=== PATIENT | male | born 1945 | race Caucasian/White ===

== ENCOUNTER → 2016-12-25 | Outpatient (CLI) | payer OTHER ==
[~2016-12-25] MED LIST: ASPI325T45 PO; ATOR-24 PO; DILT-113 PO; METF500T PO; METO100T14 PO; RAMI10CA PO
[2016-12-25 10:53] LABS: ALT/SGPT 71 U/L (12-78); BLOOD UREA NITROGEN 13 mg/dl (7-18); BUN/CREATININE RATIO 15.8 (10-20); CARBON DIOXIDE 29 mmol/L (21-32); CHLORIDE 104 mmol/L (98-107); CHOLESTEROL 111 mg/dl (0-200); CREATININE 0.81 mg/dl (0.60-1.40); GLUCOSE 108 mg/dl (70-99); POTASSIUM 4.2 mmol/L (3.5-5.1); SODIUM 140 mmol/L (136-145); TRIGLYCERIDES 106 mg/dl (0-150); VERY LOW DENSITY LIPOPROT CALC 21 mg/dl
[2016-12-25 10:56] LABS: AST/SGOT 28 U/L (15-37); CHOLESTEROL/HDL RATIO 3.2; HDL CHOLESTEROL 35 mg/dl; LDL CHOLESTEROL CALCULATED 55 mg/dl
[2016-12-25 11:01] LABS: ESTIMATED AVERAGE GLUCOSE 148 mg/dl; HA1C FLAG Normal (Normal)
== END | disposition home or self-care (01) ==
LOC: C.LAB1850 09:09
PROVIDERS: ATTEND Family Medicine
DX: E78.00 Pure hypercholesterolemia, unspecified (principal); E11.9 Type 2 diabetes mellitus without complications

== ENCOUNTER → 2017-07-09 | Outpatient (CLI) | payer OTHER ==
[2017-07-09 10:15] LABS: CHOLESTEROL/HDL RATIO 2.7
== END | disposition home or self-care (01) ==
LOC: C.LAB1850 08:53
PROVIDERS: ATTEND Internal Medicine Cardiovascular Disease
DX: E78.00 Pure hypercholesterolemia, unspecified (principal)

== ENCOUNTER → 2018-01-03 | Outpatient (CLI) | payer OTHER | END | disposition home or self-care (01) | LOC: C.LAB1850 09:12 | PROVIDERS: ATTEND Internal Medicine Cardiovascular Disease | DX: I10 Essential (primary) hypertension (principal); E78.00 Pure hypercholesterolemia, unspecified ==

== ENCOUNTER 2022-09-30 21:11 | Inpatient (IN) ==
[2022-09-30] MEDS ORDERED: ACETAMINOPHEN 325 MG TAB PO STA (21:51)
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
[2022-09-30 22:32] LABS: iSTAT Creatinine 0.7 mg/dl (0.6-1.3); iSTAT Hemoglobin 16.3 g/dl (14.0-18.0); iSTAT Ionized Calcium 1.23 mmol/l (1.12-1.32); iSTAT Potassium 4.1 mmol/L (3.3-5.0)
[2022-09-30] MEDS ORDERED: OPTIRAY 350 100ml IV ONE (23:37)
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
--- NOTE | 2022-10-01 02:58 | Billing Data ---
Date of Service October 01, 2022 Coding Level of Care Code 34654 Initial Inpt Care Lvl 2
[2022-10-01] MEDS ORDERED: GLUCAGON FOR INJ 1 MG VIAL SQ PRN (03:12)
[2022-10-01] MEDS ORDERED: GLUCOSE 40% GEL 15 GM TUBE PO PRN (03:12)
[2022-10-01] MEDS ORDERED: GLUCOSE 10 TAB/TUBE PO PRN (03:12)
[2022-10-01] MEDS ORDERED: CARBOHYDRATES FOR HYPOGLYCEMIA PO PRN (03:12)
[2022-10-01] MEDS ORDERED: ACETAMINOPHEN 325 MG TAB PO PRN (03:12)
[2022-10-01] MEDS ORDERED: DEXTROSE 50% 50 ML SYRINGE IV PRN (03:12)
[2022-10-01] MEDS ORDERED: TELMISARTAN 40 MG TAB PO STA (03:20)
[2022-10-01] MEDS: oxyCODONE/ACETAMINOPHEN 5mg/325mg TAB PO PRN ×4 (03:38→18:38)
[2022-10-01 03:51] LABS: Basophils # (auto) 0.04 K/uL (0-0.2); Basophils % (auto) 0.3 %; Eosinophils # (auto) 0.02 K/uL (0-0.50); Eosinophils % (auto) 0.2 %; Hematocrit (blood only) 44.4 % (40.1-51.0); Hemoglobin 14.5 g/dl (14.0-18.0); Immature Granulocytes # (auto) 0.05 K/uL (0.00-0.02); Immature Granulocytes % (auto) 0.4 %; Lymphocytes # (auto) 1.89 K/uL (1.2-3.4); Lymphocytes % (auto) 14.6 %; Mean Corpuscular Hemoglobin 28.3 pg (25.0-34.0); Mean Corpuscular Hgb Conc 32.7 g/dL (32.0-36.0); Mean Corpuscular Volume 86.7 fL (80.0-100.0); Mean Platelet Volume 10.4 fL (9.4-12.4); Monocytes # (auto) 0.89 K/uL (0.24-0.82); Monocytes % (auto) 6.9 %; Neutrophils # (auto) 10.02 K/uL (1.4-6.5); Neutrophils % (auto) 77.6 %; Platelet Count 281 K/uL (130-400); RDW Coefficient of Variation 13.6 % (11.5-14.5); RDW Standard Deviation 43.6 fL (36.4-46.3); Red Blood Count 5.12 M/uL (4.63-6.08); White Blood Count 12.91 K/ul (4.8-10.8)
[2022-10-01 04:04] LABS: Prothrombin Time 10.9 Seconds (9.0-12.0)
[2022-10-01 04:13] LABS: Albumin Globulin Ratio 1.6 (0.9-2); Bilirubin,Total 0.9 mg/dl (0.2-1.0); Calcium 9.8 mg/dl (8.5-10.1); Creatinine Clr Calc Pharmacy 72.9 ml/min; Est GFR (Non-African American) 85.4 ml/min; Globulin 3.2 gm/dl (2.5-4.0); Magnesium 1.7 mg/dl (1.7-2.4); Potassium 4.6 mmol/L (3.5-5.1); Total Protein 8.2 gm/dl (6.0-8.3)
--- NOTE | 2022-10-01 06:45 | XRay Report ---
XR shoulder RT min 2V routine HISTORY: 76 years-old Male R shoulder pain . Chronic right shoulder pain COMPARISON: Chest CT of same day TECHNIQUE: 3 views of the right shoulder FINDINGS: Severe AC joint with moderate glenohumeral osteoarthritis. No acute fracture or dislocation. Cardiome jacques with prior median sternotomy and CABG. Pulmonary emphysema. IMPRESSION: Osteoarthritis without acute fracture or dislocation identified. ACT 112: Negative or not required by law. The above report was generated using voice recognition software. It may contain grammatical, syntax o r spelling errors. Electronically signed by: Justyn Richardson M.D. 10/01/2022 6:44 AM
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
--- NOTE | 2022-10-01 08:01 | Communication Note ---
Date of Service: October 01, 2022 Please see history and physical from today for full A and P except as otherwise stated here: For T12/L2 disc fusion by Dr. Fitch 10/02/22. NPO at midnight. Percocet 1-2 tablets ordered as needed prn moderate-severe pain. Mildly elevated WBC count however no localizable source of infection.
[2022-10-01] MEDS: METOPROLOL TARTRATE 100 MG TAB PO SCH ×3 (08:26→18:29)
[2022-10-01] MEDS ORDERED: Nursing to Pharmacy Communication SCH (08:30)
[2022-10-01] MEDS: dilTIAZem HCL 180 MG CAPCR PO SCH (08:38)
[2022-10-01 08:39] LABS: Estimated Average Glucose 128 mg/dl; Hemoglobin A1C 6.1 % (4.5-5.6)
[2022-10-01] MEDS: INSULIN ASPART PER UNIT SC SCH ×4 (08:43→20:52)
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
[2022-10-01] MEDS ORDERED: TELMISARTAN 40 MG TAB PO SCH (09:00)
[2022-10-01] MEDS ORDERED: TAMSULOSIN HCL 0.4 MG CAP PO SCH (09:00)
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
[2022-10-01] MEDS: CHOLECALCIFEROL 5,000 UNITS 125 MCG TAB PO SCH (10:11)
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
[2022-10-01] MEDS ORDERED: oxyCODONE/ACETAMINOPHEN 5mg/325mg TAB PO PRN (14:25)
[2022-10-01] MEDS ORDERED: HYDROmorphone INJ 0.5 MG/0.5 ML SYR IV PRN (14:31)
[2022-10-01] MEDS: TELMISARTAN 40 MG TAB PO SCH (17:29)
[2022-10-01] MEDS: TAMSULOSIN HCL 0.4 MG CAP PO SCH (20:10)
[2022-10-01] MEDS: ATORVASTATIN 40 MG TAB PO SCH (20:10)
[2022-10-02] MEDS: oxyCODONE/ACETAMINOPHEN 5mg/325mg TAB PO PRN ×2 (02:20→08:51)
[2022-10-02 06:29] LABS: Hematocrit (blood only) 42.9 % (40.1-51.0); Hemoglobin 14.1 g/dl (14.0-18.0); Mean Corpuscular Hemoglobin 28.6 pg (25.0-34.0); Mean Corpuscular Hgb Conc 32.9 g/dL (32.0-36.0); Mean Platelet Volume 10.2 fL (9.4-12.4); Platelet Count 219 K/uL (130-400); RDW Coefficient of Variation 13.7 % (11.5-14.5); RDW Standard Deviation 43.6 fL (36.4-46.3); Red Blood Count 4.93 M/uL (4.63-6.08); White Blood Count 11.36 K/ul (4.8-10.8)
[2022-10-02 06:56] LABS: BUN Creatinine Ratio 15.2 (10-20); Calcium 9.3 mg/dl (8.5-10.1); Creatinine Clr Calc Pharmacy 68.2 ml/min; Est GFR (African American) 94.6 ml/min; Est GFR (Non-African American) 81.6 ml/min
[2022-10-02] MEDS: INSULIN ASPART PER UNIT SC SCH ×4 (08:45→20:43)
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
[2022-10-02] MEDS: dilTIAZem HCL 180 MG CAPCR PO SCH (08:51)
[2022-10-02] MEDS: CHOLECALCIFEROL 5,000 UNITS 125 MCG TAB PO SCH (08:51)
[2022-10-02] MEDS: METOPROLOL TARTRATE 100 MG TAB PO SCH ×2 (08:52→19:58)
[2022-10-02] MEDS ORDERED: HYDROmorphone INJ 2 MG/ML SYR/VIAL ONE (10:49)
[2022-10-02] MEDS ORDERED: MIDAZOLAM HCL 1 MG/ML 2ML VIAL ONE (10:49)
[2022-10-02] MEDS ORDERED: ATROPINE SULFATE 0.1 MG/ML 10ML SYR IV PRN (10:50)
[2022-10-02] MEDS ORDERED: ePHEDrine sulfate 50 MG/ML AMP IV PRN (10:50)
[2022-10-02] MEDS ORDERED: ONDANSETRON INJ 2 MG/ML 2 ML VIAL IV PRN ×2 (10:50→14:34)
[2022-10-02] MEDS ORDERED: fentaNYL citrate 100 MCG/2 ML VIAL IV PRN (10:50)
--- NOTE | 2022-10-02 10:50 | Anesthesiology Consultation ---
Date of Service October 02, 2022 Assessment & Plan (1) Encounter for pre-operative examination: Chart Review Chart Review: Acceptable Risk for Surgery and Patient NOT seen in Pre Admission Testing Consults Requested none History Surgery Operation Date: 10/02/22 12:25 Proposed Procedures p T12-L2 Lumbar Fusion - Adis Fitch DO Height/Weight Height: 5 ft 8 in Weight: 76.9 kg Allergies Allergy/AdvReac Type Severity Reaction Status Date / Time No Known Allergies Allergy Verified 09/30/22 21:55 Medications Home Medications Medication Instructions Recorded Confirmed Last Taken atorvastatin 40 mg tablet 40 mg PO HS #90 tabs 05/17/19 09/30/22 09/29/22 metformin 500 mg tablet 1,000 mg PO BID #60 tabs 05/17/19 09/30/22 09/30/22 metoprolol tartrate 100 mg tablet 100 mg PO BID #180 tabs 05/17/19 09/30/22 09/30/22 nitroglycerin 0.4 mg sublingual 0.4 mg sublingual UD PRN chest 05/17/19 09/30/22 Unknown tablet pain #25 tabs tamsulosin 0.4 mg capsule (Flomax) 0.4 mg PO DAILY #30 caps 01/19/21 09/30/22 09/30/22 cholecalciferol (vitamin D3) 250 250 mcg PO DAILY 05/07/22 09/30/22 09/30/22 mcg (10,000 unit) capsule diltiazem HCl 180 mg 180 mg PO DAILY 05/07/22 09/30/22 09/30/22 capsule,extended release 24 hr empagliflozin 10 mg tablet 10 mg PO DAILY 05/07/22 09/30/22 09/30/22 (Jardiance) telmisartan 80 mg tablet 80 mg PO DAILY 05/07/22 09/30/22 09/30/22 aspirin 81 mg tablet,delayed 81 mg PO HS 09/30/22 09/30/22 09/29/22 release Active Medications Generic Name Dose Route Start Last Admin Trade Name Freq PRN Reason Stop Dose Admin Atorvastatin Calcium 40 mg 10/01/22 21:00 10/01/22 20:10 Atorvastatin 40 Mg Tab PO 10/31/22 20:59 40 mg HS SENIA Administration Diltiazem HCl 180 mg 10/01/22 09:00 10/02/22 08:51 Diltiazem Hcl 180 Mg Capcr PO 10/31/22 08:59 180 mg DAILY SENIA Administration Insulin Aspart 0 units 10/01/22 07:30 10/02/22 08:45 Insulin Aspart Per Unit SC 10/31/22 07:29 Not Given ACHS SENIA Metoprolol Tartrate 100 mg 10/01/22 09:00 10/02/22 08:52 Metoprolol Tartrate 100 Mg Tab PO 10/31/22 08:59 100 mg BID SENIA Administration Oxycodone/Acetaminophen 2 tab 10/01/22 14:25 10/02/22 08:51 Oxycodone/Acetaminophen 5mg/325mg Tab PO 10/15/22 14:24 2 tab Q4H PRN Administration Severe Pain Oxycodone/Acetaminophen 1 tab 10/01/22 14:25 10/01/22 14:38 Oxycodone/Acetaminophen 5mg/325mg Tab PO 10/15/22 14:24 1 tab Q4H PRN Administration moderate pain Tamsulosin HCl 0.4 mg 10/01/22 21:00 10/01/22 20:10 Tamsulosin Hcl 0.4 Mg Cap PO 10/31/22 20:59 0.4 mg HS SENIA Administration Telmisartan 80 mg 10/01/22 17:30 10/01/22 17:29 Telmisartan 40 Mg Tab PO 10/31/22 17:29 80 mg 1730 SENIA Administration Vitamin D 10,000 units 10/01/22 09:00 10/02/22 08:51 Cholecalciferol 5,000 Units 125 Mcg Tab PO 10/31/22 08:59 10,000 units QAM SENIA Administration NPO Date Last Intake of Fluids: 10/01/22 Time Last Intake of Fluids: 22:00 Date Last Intake of Solids: 10/01/22 Time Last Intake of Solids: 22:00 Past Medical History Medical History ASCVD (arteriosclerotic cardiovascular disease) BPH (benign prostatic hyperplasia) Claudication Colon polyps Hypercholesterolemia Internal hemorrhoids Myocardial infarction 02/2001--follows with Dr. Imelda Tee Premature ventricular contractions Type 2 diabetes, HbA1c goal < 7% Past Family History Family History Mother Palpitations Father No problems noted. Other No family history of adverse response to anesthesia No significant family history Denies family history of Ovarian cancer Prostate cancer Myocardial infarction Breast cancer Colorectal cancer Past Surgical History Surgical History History of cardiac cath (~2004) @ [facility], no stents, sent for CABG History of colonoscopy with polypectomy History of hernia surgery (~1983) Hx of CABG quadrupile bypass--09/2004 @ [facility] [place]P cataract surgery 02/15/21 and 02/24/21 Social History Smoking Status: Former smoker Hx Alcohol Use: No Alcohol type: beer alcohol intake frequency: holidays/special occasions only Hx Substance Use: No substance use type: does not use Physical Exam Vital Signs Last Vital Signs Temp 99.1 F 10/02/22 10:24 Pulse 72 10/02/22 10:24 Resp 20 10/02/22 10:24 BP 179/86 H 10/02/22 10:24 Pulse Ox 87 L 10/02/22 10:24 O2 Del Method 10/02/22 10:24 O2 Flow Rate 2 10/02/22 10:24 Testing Laboratory Results 10/02/22 06:07 10/02/22 06:07 PT 10.9 Seconds (9.0-12.0) 10/01/22 03:20 INR 1.0 (0.9-1.1) 10/01/22 03:20 APTT 28.0 Seconds (21.0-31.0) 10/01/22 03:20 Hemoglobin A1c 6.1 % (4.5-5.6) H 10/01/22 03:20 Blood Type A Positive 10/02/22 06:07 Antibody Screen NEGATIVE 10/02/22 06:07 10/02/22 06:04 POC Glucose 106 H
[2022-10-02] MEDS ORDERED: DEXAMETHASONE SOD INJ 4 MG/ML VIAL ONE (10:51)
[2022-10-02] MEDS ORDERED: LIDOCAINE 2% MPF LOCAL 5 ML VIAL INFIL ONE (10:51)
[2022-10-02] MEDS ORDERED: PROPOFOL IV EMULSION 10 MG/ML 20 ML VIAL IV ONE (10:51)
[2022-10-02] MEDS ORDERED: ONDANSETRON INJ 2 MG/ML 2 ML VIAL ONE (10:51)
[2022-10-02] MEDS ORDERED: NEOSTIGMINE METHYLSULFATE 1 MG/ML 10ML VIAL ONE (10:51)
[2022-10-02] MEDS ORDERED: GLYCOPYRROLATE 0.2 MG/ML VIAL ONE ×2 (10:51)
[2022-10-02] MEDS ORDERED: ROCURONIUM BROMIDE 10 MG/ML 5 ML VIAL IV ONE (10:51)
--- NOTE | 2022-10-02 10:55 | History & Physical Bridge Note ---
Date of Service October 02, 2022 History & Physical Bridge Note I have examined the patient, reviewed the History & Physical and in the interval since the performance of the History & Physical I have noted the following changes of clinical significance: no changes noted Posterior fusion T11-L3
[2022-10-02] MEDS ORDERED: ceFAZolin 2,000 MG/15 ML IV PUSH IV ONE (11:10)
[2022-10-02] MEDS ORDERED: ceFAZolin 330 MG/ML 1 GM VIAL ONE (11:30)
[2022-10-02] MEDS ORDERED: BUPIVACAINE/EPINEPHRINE 0.25% 1:200,000 30 ML VIAL ONE (11:30)
[2022-10-02] MEDS ORDERED: FLOSEAL HEMOSTATIC MATRIX 10ML TOP ONE (12:30)
[2022-10-02] MEDS ORDERED: ePHEDrine sulfate 50 MG/ML AMP ONE (12:33)
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
[2022-10-02] MEDS ORDERED: HYDROmorphone INJ 0.5 MG/0.5 ML SYR IV PRN (14:34)
[2022-10-02] MEDS ORDERED: METOCLOPRAMIDE HCL INJ 5 MG/ML 2 ML VIAL IV PRN (14:34)
[2022-10-02] MEDS ORDERED: NALOXONE HCL 0.4 MG/1 ML VIAL/CARP IV PRN (14:34)
[2022-10-02] MEDS ORDERED: DO NOT ADMINISTER PNEUMOCOCCAL VACCINE PRN (14:34)
[2022-10-02] MEDS ORDERED: LORazepam 0.5 MG TAB PO PRN (14:34)
[2022-10-02] MEDS ORDERED: ACETAMINOPHEN 1,000 MG/100 ML VIAL IV PRN (14:34)
[2022-10-02] MEDS ORDERED: PROMETHAZINE HCL 12.5 MG in SODIUM CHLORIDE 0.9% 50 ML IV PRN (14:34)
[2022-10-02] MEDS ORDERED: ONDANSETRON 4 MG OD TAB PO PRN (14:34)
[2022-10-02] MEDS ORDERED: DO NOT ADMINISTER FLU VACCINE PRN (14:34)
[2022-10-02] MEDS ORDERED: LORazepam 2 MG/1 ML VIAL IV PRN (14:34)
[2022-10-02] MEDS ORDERED: HYDROmorphone INJ 1 MG/ML SYRINGE IV PRN (14:34)
[2022-10-02] MEDS ORDERED: hydrOXYzine HCl 25 MG TAB PO PRN (14:34)
[2022-10-02] MEDS ORDERED: bisacodyL 10 MG SUPP PR PRN (14:34)
[2022-10-02] MEDS ORDERED: diphenhydrAMINE Capsule 25 MG CAP PO PRN (14:34)
[2022-10-02] MEDS ORDERED: traMADol HCL 50 MG TABLET PO PRN (14:34)
[2022-10-02] MEDS ORDERED: FAMOTIDINE 20 MG TAB PO PRN (14:34)
[2022-10-02] MEDS ORDERED: ALUMINUM/MAGNESIUM SUSP 30 ML UDC PO PRN (14:34)
[2022-10-02] MEDS ORDERED: SOD PHOSPHATE/SOD BIPHOSPHATE ENEMA 132 ML BTL PR PRN (14:34)
[2022-10-02] MEDS ORDERED: ACETAMINOPHEN 500 MG TAB PO PRN (14:34)
--- NOTE | 2022-10-02 15:40 | Fluoroscopy Report ---
INTRAOPERATIVE RADIOGRAPHS CLINICAL HISTORY: T11-L3 spinal fusion. Fluoroscopy time: 46 seconds. FINDINGS: 4 spot fluoroscopic images of the thoracolumbar junction are presented. There is evidence o f laminectomy and posterior fusion at the thoracolumbar junction, reportedly from T11 to L3. Interped icular screws are present at all levels with the presumed exception of L1. The orthopedic hardware ap pears intact. IMPRESSION: Intraoperative images from spinal fusion at the thoracolumbar junction as above. Electronically signed by: Carlos Caldwell M.D. 10/02/2022 3:39 PM
[2022-10-02] MEDS: SODIUM CHLORIDE 0.9% 1000ML 1,000 ML IV SCH (16:56)
[2022-10-02] MEDS: TELMISARTAN 40 MG TAB PO SCH (17:01)
[2022-10-02] MEDS: ceFAZolin 2000MG 2,000 MG/15 ML SYR IV SCH (18:50)
[2022-10-02] MEDS ORDERED: COUGH DROP (SUGAR FREE) LOZ 24 LOZ/1 BOX BUCCAL PRN (18:54)
[2022-10-02] MEDS: DOCUSATE SODIUM/SENNA 50/8.6MG TAB PO SCH (19:58)
[2022-10-02] MEDS: TAMSULOSIN HCL 0.4 MG CAP PO SCH (19:58)
[2022-10-02] MEDS: ATORVASTATIN 40 MG TAB PO SCH (19:58)
[2022-10-03] MEDS: ceFAZolin 2000MG 2,000 MG/15 ML SYR IV SCH (03:41)
[2022-10-03] MEDS: POLYETHYLENE (MIRALAX) 17 GM PACK PO SCH ×3 (05:58→17:52)
[2022-10-03] MEDS: oxyCODONE HCL IR 5 MG TAB (IMMEDIATE RELEASE) PO PRN ×3 (05:58→17:58)
[2022-10-03] MEDS: SODIUM CHLORIDE 0.9% 1000ML 1,000 ML IV SCH (07:20)
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
[2022-10-03 08:16] LABS: Basophils # (auto) 0.03 K/uL (0-0.2); Basophils % (auto) 0.2 %; Hematocrit (blood only) 35.8 % (40.1-51.0); Hemoglobin 11.9 g/dl (14.0-18.0); Immature Granulocytes # (auto) 0.06 K/uL (0.00-0.02); Immature Granulocytes % (auto) 0.4 %; Lymphocytes % (auto) 10.3 %; Mean Corpuscular Hemoglobin 28.8 pg (25.0-34.0); Mean Corpuscular Hgb Conc 33.2 g/dL (32.0-36.0); Mean Corpuscular Volume 86.7 fL (80.0-100.0); Mean Platelet Volume 10.3 fL (9.4-12.4); Monocytes # (auto) 1.16 K/uL (0.24-0.82); Monocytes % (auto) 8.6 %; Neutrophils % (auto) 80.5 %; Platelet Count 230 K/uL (130-400); RDW Coefficient of Variation 13.7 % (11.5-14.5); RDW Standard Deviation 43.3 fL (36.4-46.3); Red Blood Count 4.13 M/uL (4.63-6.08); White Blood Count 13.55 K/ul (4.8-10.8)
[2022-10-03 08:35] LABS: BUN Creatinine Ratio 13.8 (10-20); Calcium 9.1 mg/dl (8.5-10.1); Creatinine Clr Calc Pharmacy 66.7 ml/min; Est GFR (African American) 92.2 ml/min; Est GFR (Non-African American) 79.6 ml/min; Potassium 4.3 mmol/L (3.5-5.1)
[2022-10-03] MEDS: CHOLECALCIFEROL 5,000 UNITS 125 MCG TAB PO SCH (08:36)
[2022-10-03] MEDS: dilTIAZem HCL 180 MG CAPCR PO SCH ×2 (08:37→08:42)
[2022-10-03] MEDS: METOPROLOL TARTRATE 100 MG TAB PO SCH ×2 (08:38→20:07)
[2022-10-03] MEDS: INSULIN ASPART PER UNIT SC SCH ×4 (09:54→20:28)
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
[2022-10-03] MEDS: TELMISARTAN 40 MG TAB PO SCH (17:51)
[2022-10-03] MEDS: DOCUSATE SODIUM/SENNA 50/8.6MG TAB PO SCH (20:07)
[2022-10-03] MEDS: TAMSULOSIN HCL 0.4 MG CAP PO SCH (20:07)
[2022-10-03] MEDS: ATORVASTATIN 40 MG TAB PO SCH (20:07)
[2022-10-03] MEDS: ASPIRIN 81 MG ECTAB PO SCH (20:07)
[2022-10-04] MEDS: POLYETHYLENE (MIRALAX) 17 GM PACK PO SCH ×4 (00:06→17:51)
[2022-10-04] MEDS: oxyCODONE HCL IR 5 MG TAB (IMMEDIATE RELEASE) PO PRN ×2 (02:54→21:14)
[2022-10-04 08:04] LABS: Hematocrit (blood only) 33.9 % (40.1-51.0); Hemoglobin 11.3 g/dl (14.0-18.0); Mean Corpuscular Hemoglobin 28.5 pg (25.0-34.0); Mean Corpuscular Hgb Conc 33.3 g/dL (32.0-36.0); Mean Corpuscular Volume 85.4 fL (80.0-100.0); Mean Platelet Volume 10.3 fL (9.4-12.4); Platelet Count 220 K/uL (130-400); RDW Standard Deviation 43.7 fL (36.4-46.3); Red Blood Count 3.97 M/uL (4.63-6.08); White Blood Count 13.39 K/ul (4.8-10.8)
[2022-10-04] MEDS ORDERED: SOD PHOSPHATE/SOD BIPHOSPHATE ENEMA 132 ML BTL PR PRN (08:46)
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
[2022-10-04] MEDS: METOPROLOL TARTRATE 100 MG TAB PO SCH ×2 (09:08→21:06)
[2022-10-04] MEDS: CHOLECALCIFEROL 5,000 UNITS 125 MCG TAB PO SCH (09:08)
[2022-10-04] MEDS: dilTIAZem HCL 180 MG CAPCR PO SCH (09:08)
[2022-10-04] MEDS: MAGNESIUM HYDROXIDE SUSP 30 ML UDC PO PRN ×2 (09:18→15:40)
[2022-10-04] MEDS: LACTATED RINGER'S 1,000 ML IV SCH ×2 (09:18→17:51)
[2022-10-04] MEDS: INSULIN ASPART PER UNIT SC SCH ×4 (09:45→21:09)
[2022-10-04] MEDS: bisacodyL 10 MG SUPP PR SCH (09:56)
[2022-10-04] MEDS ORDERED: CYCLOBENZAPRINE HCL 10 MG TAB PO STA (16:15)
[2022-10-04] MEDS: TELMISARTAN 40 MG TAB PO SCH (16:56)
[2022-10-04] MEDS: ACETAMINOPHEN 500 MG TAB PO SCH (21:03)
[2022-10-04] MEDS: DOCUSATE SODIUM/SENNA 50/8.6MG TAB PO SCH (21:05)
[2022-10-04] MEDS: ASPIRIN 81 MG ECTAB PO SCH (21:06)
[2022-10-04] MEDS: TAMSULOSIN HCL 0.4 MG CAP PO SCH (21:07)
[2022-10-04] MEDS: ATORVASTATIN 40 MG TAB PO SCH (21:07)
[2022-10-04] MEDS ORDERED: CYCLOBENZAPRINE HCL 10 MG TAB PO PRN (23:31)
[2022-10-05] MEDS: POLYETHYLENE (MIRALAX) 17 GM PACK PO SCH ×3 (00:55→13:35)
[2022-10-05] MEDS: LACTATED RINGER'S 1,000 ML IV SCH ×2 (00:59→08:54)
[2022-10-05] MEDS: ACETAMINOPHEN 500 MG TAB PO SCH ×2 (05:53→13:37)
[2022-10-05] MEDS ORDERED: SOD PHOSPHATE/SOD BIPHOSPHATE ENEMA 132 ML BTL PR ONE (07:00)
[2022-10-05] MEDS: CHOLECALCIFEROL 5,000 UNITS 125 MCG TAB PO SCH (08:57)
[2022-10-05] MEDS: dilTIAZem HCL 180 MG CAPCR PO SCH (08:57)
[2022-10-05] MEDS: METOPROLOL TARTRATE 100 MG TAB PO SCH (08:57)
[2022-10-05] MEDS: INSULIN ASPART PER UNIT SC SCH ×2 (08:59→13:36)
[2022-10-05] MEDS: bisacodyL 10 MG SUPP PR SCH (09:35)
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
--- NOTE | 2022-10-07 14:57 | Anesthesiology Progress Note ---
Date of Service October 02, 2022 Anesthesia Post Procedure Pain Intensity Back: Pain Intensity: 2 Lower Back: Pain Intensity: 2 Transfer of Care Handoff Completed per policy Notes Mental Status: alert / awake / arousable and participated in evaluation Patient Amnestic to Procedure: Yes Nausea / Vomiting: adequately controlled Pain: adequately controlled Airway Patency, RR, SpO2: stable & adequate BP & HR: stable & adequate Hydration State: stable & adequate Anesthetic Complications: no major complications apparent and Pt Satisfied with anesthetic care
== END 2022-10-05 14:52 | disposition home or self-care (01) | DRG 460 ==
LOC: ED 21:11 → SUATTDRO 10-01 01:46 → 3E 10-01 01:46